=== PATIENT | female | born 1960 | race African-American/Black ===

== ENCOUNTER 2022-02-11 08:04 | Emergency (ER) | payer OTHER, SELFPAY ==
[2022-02-11 08:14] VITALS: BP 160/97; PULSE 88; RESP 16; TEMP 38.1; O2SAT 97
--- NOTE | 2022-02-11 08:15 | ED.URI ---
HPI - URI/Sore Throat General Chief Complaint: Upper Respiratory Infection Stated Complaint: body aches/fever/cough Time Seen by Provider: 02/11/22 08:15 Source: patient, RN notes reviewed and old records reviewed Mode of arrival: ambulatory Limitations: no limitations History of Present Illness HPI Narrative: 61-year-old female presents to the [facility] with complaints of body aches, fever, headaches and cough. States it started Thursday at [place] with gradual onset. Reports fevers between 100- 101. Has taken [id number] cold medicine. Reports having both COVID vaccines and her flu vaccine this year MD elicited complaint: fever and cough Onset (ago): day(s) (2) Consistency: constant Severity: mild Able to tolerate fluids by mouth: Yes Treatments prior to arrival: cold medicine Related Data Home Medications Medication Instructions Recorded Confirmed alprazolam 1 mg tablet 1 mg PO BID PRN anxiety 12/04/21 12/04/21 hydrocodone 5 mg-acetaminophen 325 1 tablet PO Q6H PRN neck/back pain 12/04/21 12/04/21 mg tablet linagliptin 5 mg tablet (Tradjenta) 5 mg PO QAM 12/04/21 12/04/21 losartan 50 mg-hydrochlorothiazide 1 tablet PO DAILY 12/04/21 12/04/21 12.5 mg tablet Allergies Allergy/AdvReac Type Severity Reaction Status Date / Time ciprofloxacin Allergy Intermediate swelling Verified 02/11/22 08:14 gadobenic acid Allergy Intermediate Nausea and Verified 02/11/22 08:33 [From contrast - MRI] Vomiting iohexol Allergy Intermediate Nausea and Verified 02/11/22 08:33 [From contrast - CT, X-RAY] Vomiting Review of Systems Review of Systems: All systems reviewed & are unremarkable except as noted in HPI and below Constitutional: Constitutional: Reports as per HPI, Reports body ache(s), Reports chills, Reports fatigue, Reports fever(s) and Reports lethargy Eyes: Eyes: Reports no additional eye complaints ENT: Reports system reviewed and no additional complaints, except as documented Cardiovascular: Cardiovascular: Reports no additional cardiovascular complaints, Denies chest pain and Denies dyspnea Respiratory: Respiratory: Reports as per HPI, Reports no additional respiratory complaints, Denies chest congestion, Reports cough and Denies dyspnea Gastrointestinal: Gastrointestinal: Reports no additional gastrointestinal complaints, Denies abdominal pain, Denies nausea and Denies vomiting Musculoskeletal: Musculoskeletal: Reports no additional musculoskeletal complaints Integumentary/Breasts: Skin/Breast: Reports system reviewed and no additional complaints, except as docu Neurologic: Reports system reviewed and no additional complaints, except as documented Psychiatric: Psychiatric: Reports no additional psychiatric complaints Allergic/Immunologic: Allergic/Immunologic: Reports no additional allergic/immunologic complaints PMFSH Past Medical History Medical History (Updated 02/11/22 @ 08:38 by Madeleine Tristan APRN) Anxiety Chronic kidney disease (CKD) Diabetes mellitus Hypertension Social History Social History Smoking status: Former smoker Alcohol intake: never Substance use: never Comments At the time of my signature, I reviewed and agree with the nursing past medical, surgical, social, and family history. There is no relevant family history pertinent to the patient complaint. Exam Const: General: cooperative, healthy appearing, no acute distress, well developed, alert, uncomfortable and well nourished Nutritional Appearance: well nourished and obese Orientation/consciousness: patient oriented x3 Limitations: no limitations HENMT: Head: normal to inspection Ears: hearing grossly normal bilaterally and external ears normal Face/Nose/Sinus: Normal external nose present, Normal nares present, Normal nasal mucous membranes and turbinates present and normal facial exam Face and sinus: normal facial exam Mouth: Yes Normal oral and
[2022-02-11 08:16] VITALS: BP 160/97; PULSE 88; RESP 16; TEMP 38.1; O2SAT 97
== END 2022-02-11 08:44 | disposition home or self-care (01) ==
PROVIDERS: Emergency Provider Nurse Practitioner
DX: U07.1 COVID-19 (principal); I12.9 Hypertensive chronic kidney disease with stage 1 through stage 4 chronic kidney disease, or unspecified chronic kidney disease; E11.22 Type 2 diabetes mellitus with diabetic chronic kidney disease; N18.9 Chronic kidney disease, unspecified; F41.9 Anxiety disorder, unspecified
CPT/HCPCS: 87426; 87804; 99213; C9803; G0463

== ENCOUNTER 2022-05-14 08:33 | Outpatient (CLI) | payer OTHER, SELFPAY ==
--- NOTE | 2022-06-09 10:01 | WPDSLEEPSTUD ---
Sleep Study Date of Study: 05/14/22 Ordering Provider: ROLF Nichole Interpreting Physician: Marychuy Short MD Sleep Study Type: Polysomnogram Height: 1.6 m Weight: 115.212 kg Body Mass Index: 44.9 Neck Circumference (inches): 13 [place]: 1 Reason for Sleep Study Non restorative sleep, frequent nighttime awakenings with nocturia Sleep History Lauren Aponte is a 62-year-old woman with hypertension who occasionally awakens at night with heartburn, belching or coughing. She frequently snores, and her snoring is always loud enough that others complain about it. She always has trouble sleeping with a cold. She does not gasp for breath at night usually. She frequently has breathing problems at night reported to her by others. She always sweats excessively at night. She does not notice her heart pounding or beating irregularly night. She does not fall asleep during the day, does not fall asleep involuntarily or while driving. She does not have loss of muscle tone with strong emotion. She does not have daytime difficulties due to excessive sleepiness. She is a cook. She rarely feels paralyzed on waking or falling asleep. She does not have vivid dreamlike scenes on waking or falling asleep. She does not feel afraid to go to sleep. She constantly has nightmares. She constantly remembers her dreams. She constantly has racing thoughts. She always has feelings of sadness, depression and anxiety. She constantly has muscular tension. She always notices parts of her body jerking. She frequently kicks at night. She always has crawling and aching feelings in her legs and leg pain during the night. She frequently has morning jaw pain. She does not grind her teeth during sleep. She always is bothered by pain during the day. She frequently is awakened by pain at night. She frequently wakes up feeling stiff in the morning. She always wakes up with sore achy muscles and pain in the neck and spine. She has depression and anxiety. Normal bedtime is between 10:00 p.m. and midnight, taking sometimes 2 hours to fall asleep, waking 5-6 times at night to go to the bathroom. She may stay awake for 2 hours when she wakes during the night. She wakes the morning at 7:30 a.m.. Her weekend schedule is a little more flexible, may go to bed even later than midnight. She usually wakes by 8 in the morning. She estimates getting about 6 hours of sleep at night. She works split shifts. She does not take naps in the afternoon or evening. She does not feel refreshed after short nap. She feels better in the afternoon compared to the morning. Habits: Former tobacco. Caffeine 1 serving a day. No alcohol or recreational substances. [facility]LY [facility] Past Medical History Medical History (Updated 06/09/22 @ 10:50 by Marychuy Short MD) Anxiety Chronic kidney disease (CKD) Depression Diabetes mellitus Hypertension Social History Social History Smoking status: Former smoker Alcohol intake: never Substance use: never Living arrangements: with family Medications Home Medications Medication Instructions Recorded Confirmed Type alprazolam 1 mg tablet 1 mg PO BID PRN anxiety 12/04/21 02/11/22 History hydrocodone 5 mg-acetaminophen 325 1 tablet PO Q6H PRN neck/back pain 12/04/21 02/11/22 History mg tablet linagliptin 5 mg tablet (Tradjenta) 5 mg PO QAM 12/04/21 02/11/22 History losartan 50 mg-hydrochlorothiazide 1 tablet PO DAILY 12/04/21 02/11/22 History 12.5 mg tablet Sleep Procedure This test was performed using the [employer] multiple channel system including EOG, EEG, submental EMG, EKG, nasal and oral airflow using thermistors and nasal pressure sensors, chest and abdominal belts for body position data, and pulse oximetry. Video monitoring was also performed. The study was scored using CMS guidelines. Sleep Architecture Recording duration 509.6 minutes. To
[2022-06-09 10:52] VITALS: BMI 44.9
== END 2022-05-15 08:56 | disposition home or self-care (01) ==
LOC: ANHCSM 08:35
PROVIDERS: Visit Provider Physician Assistant
DX: G47.10 Hypersomnia, unspecified (principal); Z72.820 Sleep deprivation; G25.81 Restless legs syndrome
CPT/HCPCS: 95810

== ENCOUNTER 2022-08-11 09:41 | Outpatient (CLI) | payer OTHER, SELFPAY ==
[2022-08-19 16:58] VITALS: BMI 44.9
--- NOTE | 2022-08-19 16:58 | WPDHOMESLEEP ---
Sleep Study - Home Unattended Date of Study: 08/11/22 Ordering Provider: ROLF Nichole Interpreting Provider: Rose Patino, DO Home Sleep Study Type: Apnea Link Air Height: 1.6 m Weight: 115.212 kg Body Mass Index: 44.9 Neck Circumference (inches): 13 [place]: 9 Reason for Sleep Study Unrefreshing sleep, Nocturia PSG on 05/14/2022 showed overall AHI of 2.2. Sleep History Lauren Aponte is a 62-year-old woman with hypertension who occasionally awakens at night with heartburn, belching or coughing.? She frequently snores, and her snoring is always loud enough that others complain about it.? She always has trouble sleeping with a cold.? She does not gasp for breath at night usually.? She frequently has breathing problems at night reported to her by others.? She always sweats excessively at night.? She does not notice her heart pounding or beating irregularly night.? She does not fall asleep during the day, does not fall asleep involuntarily or while driving.? She does not have loss of muscle tone with strong emotion.? She does not have daytime difficulties due to excessive sleepiness.? 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 She does not have vivid dreamlike scenes on waking or falling asleep.? She does not feel afraid to go to sleep.? She constantly has nightmares.? She constantly remembers her dreams.? She constantly has racing thoughts.? She always has feelings of sadness, depression and anxiety.? She constantly has muscular tension.??She always notices parts of her body jerking.? She frequently kicks at night.? She always has crawling and aching feelings in her legs and leg pain during the night.? She frequently has morning jaw pain.? She does not grind her teeth during sleep.? She always is bothered by pain during the day.? She frequently is awakened by pain at night.? She frequently wakes up feeling stiff in the morning.? She always wakes up with sore achy muscles and pain in the neck and spine.? She has depression and anxiety. Normal bedtime is between 10:00 p.m. and midnight, taking sometimes 2 hours to fall asleep, waking 5-6 times at night to go to the bathroom.? She may stay awake for 2 hours when she wakes during the night.? She wakes the morning at 7:30 a.m..? Her weekend schedule is a little more flexible, may go to bed even later than midnight.? She usually wakes by 8 in the morning.? She estimates getting about 6 hours of sleep at night.? She works split shifts.? She does not take naps in the afternoon or evening.? She does not feel refreshed after short nap.? She feels better in the afternoon compared to the morning. Habits:? Former tobacco.? Caffeine 1 serving a day.? No alcohol or recreational substances. FORMERLY [facility] Past Medical History Medical History Anxiety Chronic kidney disease (CKD) Depression Diabetes mellitus Hypertension Social History Social History Smoking status: Former smoker Alcohol intake: never Substance use: never Living arrangements: with family Medications Home Medications Medication Instructions Recorded Confirmed Type alprazolam 1 mg tablet 1 mg PO BID PRN anxiety 12/04/21 02/11/22 History hydrocodone 5 mg-acetaminophen 325 1 tablet PO Q6H PRN neck/back pain 12/04/21 02/11/22 History mg tablet linagliptin 5 mg tablet (Tradjenta) 5 mg PO QAM 12/04/21 02/11/22 History losartan 50 mg-hydrochlorothiazide 1 tablet PO DAILY 12/04/21 02/11/22 History 12.5 mg tablet eszopiclone 2 mg tablet (Lunesta) 2 mg PO ONCE #1 tablet 06/10/22 Rx Sleep Procedure This test was performed using 4 channel monitoring including respiratory effort channel, snoring channel, heart rate channel, and oxygen saturation channel. This study was scored using [facility] guidelines. Sleep Architecture The patient had a total recording time of 8 hours 19 minutes
== END 2022-08-12 10:26 | disposition home or self-care (01) ==
LOC: ANHCSM 09:42
PROVIDERS: Visit Provider Physician Assistant
DX: G47.10 Hypersomnia, unspecified (principal); G47.9 Sleep disorder, unspecified
CPT/HCPCS: 95806

== ENCOUNTER 2022-11-19 08:39 | Emergency (ER) | payer OTHER, SELFPAY ==
[2022-11-19 08:57] VITALS: BP 147/80; PULSE 72; RESP 18; TEMP 36.3; O2SAT 98
--- NOTE | 2022-11-19 09:12 | ED.URI ---
HPI - URI/Sore Throat General Chief Complaint: Upper Respiratory Infection Stated Complaint: Fever/Sinus Source: patient and RN notes reviewed Mode of arrival: ambulatory Limitations: no limitations History of Present Illness HPI Narrative: 62 y/o female with hx DM presented for c/o cough x2 days, states cough is productive of brown sputum today, and reports subjective fever at home. States she had some wheezing last night. Denies sob, n/v/d. 2 days ago received flu shot. Reports exposure to covid. Taking Mucinex and sofia seltzer. States she was prescribed furosemide by pcp 2 days ago but has not started it. MD elicited complaint: cough Related Data Home Medications Medication Instructions Recorded Confirmed alprazolam 1 mg tablet 1 mg PO BID PRN anxiety 12/04/21 02/11/22 hydrocodone 5 mg-acetaminophen 325 1 tablet PO Q6H PRN neck/back pain 12/04/21 02/11/22 mg tablet linagliptin 5 mg tablet (Tradjenta) 5 mg PO QAM 12/04/21 02/11/22 losartan 50 mg-hydrochlorothiazide 1 tablet PO DAILY 12/04/21 02/11/22 12.5 mg tablet atorvastatin 40 mg tablet mg 11/19/22 famotidine 20 mg tablet mg 11/19/22 furosemide 20 mg tablet mg 11/19/22 hydralazine 50 mg tablet mg 11/19/22 linaclotide 145 mcg capsule mcg 11/19/22 (Linzess) linagliptin 5 mg tablet (Tradjenta) mg 11/19/22 potassium chloride 10 mEq meq PO 11/19/22 tablet,extended release Allergies Allergy/AdvReac Type Severity Reaction Status Date / Time ciprofloxacin Allergy Intermediate swelling Verified 02/11/22 08:14 gadobenic acid Allergy Intermediate Nausea and Verified 02/11/22 08:33 [From contrast - MRI] Vomiting iohexol Allergy Intermediate Nausea and Verified 02/11/22 08:33 [From contrast - CT, X-RAY] Vomiting Review of Systems Review of Systems: CONSTITUTIONAL: Denies malaise, Reports chills, sweats, fever EYES: Denies visual changes, redness, or discharge ENT: Reports rhinorrhea, congestion, denies sinus pain, otalgia, sore throat CARDIOVASCULAR: Denies chest pain, palpitations, reports edema RESPIRATORY: Reports cough, post nasal drainage. Denies dyspnea GASTROINTESTINAL: Denies abdominal pain, nausea, vomiting, diarrhea SKIN: Denies rash or itching MUSCULOSKELETAL: denies myalgia NEUROLOGIC: Denies headache PMFSH Past Medical History Medical History Anxiety Chronic kidney disease (CKD) Depression Diabetes mellitus Hypertension Social History Social History Smoking status: Former smoker Alcohol intake: never Substance use: never Living arrangements: with family Exam Narrative: GENERAL: well-appearing, nontoxic no acute distress. HEAD: Normocephalic EYES: PERRLA, conjunctivae clear ENT: Mucous membranes moist. TM pearly oneal with dull light reflex bilaterally; no tragal tenderness. Oropharynx without erythema, lesions or exudate, no drooling, no hoarseness, no trismus, uvula midline. NECK: Supple. No lymphadenopathy CHEST: Clear to auscultation, breath sounds equal. No wheezing, rhonchi, rales, or stridor. No respiratory distress, speaks in full sentences. HEART: Regular rate and rhythm. No murmur heard. SKIN: Warm, dry, no rash. BLE edema 3+ NEURO: Alert and oriented x3. PSYCH: Normal mood and affect Course Course Emergency Course: Patient is aware of diagnosis, understands and agrees to treatment plan. Anticipatory guidance given. Patient agrees to follow-up as directed and is aware of reasons to seek care at the emergency department. Portions of this record may have been created with voice recognition software Level of Care: Express Care Visit Vital Signs Vital signs: Vital Signs Temperature 97.4 F L 11/19/22 08:57 Pulse Rate 72 11/19/22 08:57 Respiratory Rate 18 11/19/22 08:57 Blood Pressure 147/80 H 11/19/22 08:57 Pulse Oximetry 98 11/19/22 08:57 Oxygen Delivery
== END 2022-11-19 09:30 | disposition home or self-care (01) ==
PROVIDERS: Emergency Provider Nurse Practitioner Family; PCP Internal Medicine
DX: B34.9 Viral infection, unspecified (principal); Z20.822 Contact with and (suspected) exposure to COVID-19; I12.9 Hypertensive chronic kidney disease with stage 1 through stage 4 chronic kidney disease, or unspecified chronic kidney disease; E11.22 Type 2 diabetes mellitus with diabetic chronic kidney disease; N18.9 Chronic kidney disease, unspecified; F41.9 Anxiety disorder, unspecified; Z87.891 Personal history of nicotine dependence
CPT/HCPCS: 87426; 99213; C9803; G0463